=== PATIENT | male | born 1995 | race Caucasian/White ===

== ENCOUNTER 2020-02-12 14:59 | Emergency (ER) | payer MEDICAID ==
[~2020-02-12] VITALS: Ht 180.3 cm; Wt 83.9 kg
[2020-02-12 15:20] VITALS: BP 145/89
--- NOTE | 2020-02-12 15:30 | NUR ---
PT CO ANXIETY/PANIC ATTACKS AND JITTERS SINCE YESTERDAY. PT STATES THAT IT FEELS LIKE HE CANNOT SIT STILL. PT USUALLY RUN 4-5 MILES DAILY AND HE RAN 4 MILES TODAY WITHOUT ANY SOB OR CP. PT DOES USE MARIJUANA TO RELAX ON A DAILY BASIS AND ALCOHOL EVERY OTHER WEEKEND SOCIALLY. NO MEDS AND NO PMH. SKIN IS PINK/WARM/DRY; AAOX4 WITH EVEN AND STEADY GAIT; PT DENIES ANY FEVER, CP, SOB, OR COUGH AT THIS TIME; PATIENT STATES PAIN OF 0/10 AT THIS TIME; VSS; PATIENT POSITIONED FOR COMFORT; HOB ELEVATED; BEDRAILS UP X1; BED DOWN. ER MD MADE AWARE OF PT STATUS.
--- NOTE | 2020-02-12 15:41 | NUR ---
TELLO PLASCENCIA IS EVALUATING PT AT BEDSIDE.
[2020-02-12] MEDS ORDERED: LORazepam 0.5 MG TAB PO ONE (15:45)
[2020-02-12 17:20] LABS: BASOPHILS # (AUTO) 0.1 K/uL (0.00-0.22); BASOPHILS % (AUTO) 1.2 % (0.0-2.0); EOSINOPHILS % (AUTO) 0.5 % (0.0-4.0); HEMATOCRIT 45.7 % (36-52); HEMOGLOBIN 15.3 g/dL (12.0-18.0); LYMPHOCYTES # (AUTO) 1.2 K/uL (2.0-11.5); LYMPHOCYTES % (AUTO) 26.3 % (20.5-51.1); MEAN CORPUSCULAR HEMOGLOBIN 31 pg (27-31); MEAN CORPUSCULAR HGB CONC 33 g/dL (33-37); MEAN CORPUSCULAR VOLUME 93.1 fL (80-94); MONOCYTES # (AUTO) 0.5 K/uL (0.8-1.0); MONOCYTES % (AUTO) 11.1 % (1.7-9.3); NEUTROPHILS # (AUTO) 2.8 K/uL (1.8-7.7); NEUTROPHILS % (AUTO) 60.9 % (42.2-75.2); PLATELET COUNT (AUTO) 189 K/uL (140-450); RED BLOOD CELL COUNT(AUTO) 4.92 MIL/uL (4.20-6.10); RED CELL DISTRIBUTION WIDTH 12.9 % (11.6-13.7); WHITE BLOOD COUNT (AUTO) 4.6 K/uL (4.8-10.8)
--- NOTE | 2020-02-12 17:20 | NUR ---
pt is resting in the bed with vss.
[2020-02-12 17:28] LABS: BARBITURATE, URINE NEGATIVE ng/ml (NEG <=200); BENZODIAZEPINE, URINE NEGATIVE ng/mL (NEG <=200); COCAINE, URINE NEGATIVE ng/mL (NEG <=300)
[2020-02-12 17:29] LABS: CANNABINOID, URINE POSITIVE ng/mL (NEG <=50); OPIATE, URINE NEGATIVE ng/mL (NEG <=2000); PHENCYCLIDINE SCREEN,URINE NEGATIVE ng/mL (NEG <=25)
[2020-02-12 17:33] LABS: ALBUMIN 4.1 g/dL (3.4-5.0); ANION GAP 12.7 (8-16); CARBON DIOXIDE 27.4 mmol/L (21-32); POTASSIUM 4.1 mmol/L (3.5-5.1); TOTAL BILIRUBIN 1.2 mg/dL (0.0-1.0)
[2020-02-12 18:20] VITALS: BP 118/79
--- NOTE | 2020-02-12 18:20 | NUR ---
Patient discharged with v/s stable. Written and verbal after care instructions given and explained. Patient alert, oriented and verbalized understanding of instructions. Ambulatory with steady gait. All questions addressed prior to discharge. ID band removed. Patient advised to follow up with PMD. Rx of Vistaril given. Patient educated on indication of medication including possible reaction and side effects. Opportunity to ask questions provided and answered.
== END 2020-02-12 18:20 | disposition home or self-care (01) ==
LOC: MED 14:59
DX: F41.9 Anxiety disorder, unspecified (principal); F17.200 Nicotine dependence, unspecified, uncomplicated; R03.0 Elevated blood-pressure reading, without diagnosis of hypertension; F12.90 Cannabis use, unspecified, uncomplicated
CPT/HCPCS: 36415; 71045; 80053; 80305; 84484; 85025; 93005; 99285

== ENCOUNTER 2020-06-19 12:47 | Emergency (ER) | payer MEDICAID ==
[~2020-06-19] VITALS: Ht 180.3 cm; Wt 74.8 kg
[2020-06-19 12:52] VITALS: BP 157/86
--- NOTE | 2020-06-19 12:52 | NUR ---
PATIENT AMBULATED TO ER BED 07
--- NOTE | 2020-06-19 12:59 | NUR ---
PATIENT PRESENTS TO ED WITH RIGHT UPPER ABD PAIN X1W . PT STATES HE HAD FOOD POISIONING IN JANUARY AND SINCE THEN THE PAIN COMES AND GOES BUT HAS BEEN WORSE IN THE PAST WEEK. PT STATES THAT HE HAS LOST APPROX 5 POUNDS THIS WEEK. LOSS OF APPETITE AND FOOD NO LONGER APPEALS TO THE PT. DENIES N/V/D; SKIN IS PINK/WARM/DRY; AAOX4 WITH EVEN AND STEADY GAIT; LUNGS CLEAR BL; HR EVEN AND REGULAR; PT DENIES ANY FEVER, CP, SOB, OR COUGH AT THIS TIME; PATIENT STATES PAIN OF 0/10 AT THIS TIME; VSS; PATIENT POSITIONED FOR COMFORT; HOB ELEVATED; BEDRAILS UP X2; BED DOWN. ER MD MADE AWARE OF PT STATUS.
[2020-06-19 13:26] VITALS: BP 157/86
--- NOTE | 2020-06-19 13:27 | NUR ---
Patient discharged with v/s stable. Written and verbal after care instructions given and explained. Patient alert, oriented and verbalized understanding of instructions. Ambulatory with steady gait. All questions addressed prior to discharge. ID band removed. Patient advised to follow up with PMD. Rx of PRILOSEC given. Patient educated on indication of medication including possible reaction and side effects. Opportunity to ask questions provided and answered.
== END 2020-06-19 13:27 | disposition home or self-care (01) ==
LOC: MED 12:47
DX: R10.13 Epigastric pain (principal)
CPT/HCPCS: 99283